=== PATIENT | female | born 2000 | race Caucasian/White ===

== ENCOUNTER 2022-03-14 20:04 | Inpatient (IN) | payer OTHER ==
[2022-03-14] MEDS ORDERED: Carboprost 250 MCG/ML AMP IM PRN (21:02)
[2022-03-14] MEDS ORDERED: Lidocaine 1% (PF) 30 ML VIAL SC PRN (21:02)
[2022-03-14] MEDS ORDERED: Acetaminophen 500 MG TAB PO PRN (21:02)
[2022-03-14] MEDS ORDERED: HYDROcodone/Acetaminophen 5/325 mg Tablet PO PRN (21:02)
[2022-03-14] MEDS ORDERED: Ondansetron PF 4 MG/2 ML Vial IVP PRN (21:02)
[2022-03-14] MEDS ORDERED: Methylergonovine 0.2 MG/ML VIAL IM PRN (21:02)
[2022-03-14] MEDS ORDERED: Misoprostol 200 MCG TAB PR PRN (21:02)
[2022-03-14] MEDS ORDERED: Promethazine HCl 25 MG/ML VIAL IM PRN (21:02)
[2022-03-14] MEDS ORDERED: hydrALAZINE 20 MG/ML VIAL SLOW IVP PRN (21:02)
[2022-03-14] MEDS ORDERED: Diphenoxylate HCl/Atropine Tablet PO PRN (21:02)
[2022-03-14] MEDS ORDERED: Ibuprofen 800 MG TAB PO PRN (21:02)
[2022-03-14] MEDS ORDERED: Misoprostol 100 MCG TAB VAG SCH (21:15)
[2022-03-14] MEDS ORDERED: NS w/ Oxytocin 30 units 500 ML IV SCH ×2 (21:15)
[2022-03-14] MEDS ORDERED: Lactated Ringer's 1,000 ML IV SCH (21:15)
[2022-03-14 22:11] VITALS: BMI 31.8
[2022-03-15 02:02] LABS: Hemoglobin 10.5 g/dL (12.0-15.5); Mean Corpuscular HGB CONC 33.5 g/dL (32.0-36.0); Mean Corpuscular Volume 89.4 fl (81.6-98.3); Mean Platelet Volume 9.4 fl (7.4-10.4); Platelet Count 624 10x3/uL (150-450); RBC Distribution Width 13.8 % (11.5-14.5); White Blood Cell (WBC) Count 19.7 10x3/uL (3.5-10.5)
[2022-03-15 02:35] LABS: Syphilis Antibody Nonreactive (Nonreactive); Syphilis Antibody Index 0.02 S/CO (<1.00 Non-Reactive)
[2022-03-15 02:36] LABS: HBSAg Index 0.19 S/CO (0-0.99); Hep B Surf Ag Non-Reactive S/CO (NonReactive)
[2022-03-15 04:27] LABS: SARS-CoV-2 NAA Rapid Test Not Detected (NotDetected)
[2022-03-15 04:28] LABS: Amphetamine Not Detected (NotDetected); Barbiturates Screen Not Detected (NotDetected); Benzodiazepine Screen Not Detected (NotDetected); Cocaine Metabolite Screen Not Detected (NotDetected); Methadone Not Detected (NotDetected); Methamphetamine Not Detected (NotDetected); Opiate Screen Not Detected (NotDetected); Oxycodone Screen Not Detected (NotDetected); Phencyclidine (PCP) Not Detected (NotDetected); THC/Cannabinoid Screen Not Detected (NotDetected); Tricyclic Screen Not Detected (NotDetected)
[2022-03-15] MEDS: Butorphanol Tartrate 1 MG/ML VIAL SLOW IVP PRN ×2 (09:34→12:13)
[2022-03-15] MEDS ORDERED: Fentanyl 2 mcg/Bup 0.1% Cadd 100 ML ONE ×2 (12:46→18:49)
[2022-03-15 20:05] LABS: RapidComm Collect By CBN
[2022-03-15 20:06] LABS: RapidComm Collect By CBN; pH (Cord, venous) 7.232 (7.250-7.350)
[2022-03-15] MEDS ORDERED: cloNIDine 0.1 MG TAB PO PRN (23:02)
[2022-03-15] MEDS ORDERED: Boostrix 0.5 ML (Tdap) VIAL (>/=7 yrs of age) IM ONE (23:02)
[2022-03-15] MEDS ORDERED: Bisacodyl 10 MG SUPP PR PRN (23:02)
[2022-03-15] MEDS ORDERED: Milk Of Magnesia 30 ML UDCUP PO PRN (23:02)
[2022-03-15] MEDS ORDERED: Promethazine HCl 25 MG/ML VIAL IM PRN (23:02)
[2022-03-15] MEDS ORDERED: Ondansetron PF 4 MG/2 ML Vial IVP PRN (23:02)
[2022-03-15] MEDS ORDERED: hydrALAZINE 20 MG/ML VIAL SLOW IVP PRN (23:02)
[2022-03-15] MEDS ORDERED: diphenhydrAMINE 25 MG CAP PO PRN (23:02)
[2022-03-15] MEDS ORDERED: HYDROcodone/Acetaminophen 5/325 mg Tablet PO PRN ×2 (23:02)
[2022-03-15] MEDS ORDERED: Lanolin Ointment 7 GM TUBE TOP PRN (23:02)
[2022-03-15] MEDS ORDERED: Benzocaine-Menthol 82.5 ML CAN TOP PRN (23:02)
[2022-03-15] MEDS ORDERED: Ibuprofen 800 MG TAB PO SCH (23:15)
[2022-03-15] MEDS ORDERED: Docusate 100 MG CAP PO SCH (23:15)
[2022-03-16] MEDS ORDERED: Ibuprofen 800 MG TAB PO SCH (06:00)
[2022-03-16] MEDS: Ferrous Sulfate 325 MG TAB PO SCH ×2 (08:06→16:53)
[2022-03-16] MEDS: Ibuprofen 800 MG TAB PO SCH ×3 (08:06→23:36)
[2022-03-16] MEDS: Docusate 100 MG CAP PO SCH ×2 (08:06→21:10)
[2022-03-16] MEDS: Prenatal Vitamin 1 TAB PO SCH (08:06)
[2022-03-17] MEDS: Prenatal Vitamin 1 TAB PO SCH (07:57)
[2022-03-17] MEDS: Ibuprofen 800 MG TAB PO SCH (07:57)
[2022-03-17] MEDS: Ferrous Sulfate 325 MG TAB PO SCH (07:57)
[2022-03-17] MEDS: Docusate 100 MG CAP PO SCH (07:57)
[2022-03-17 08:02] VITALS: BP 129/80; TEMP 97.9
== END 2022-03-17 10:30 | disposition home or self-care (01) | DRG 807 ==
LOC: CSHLD 20:04 → CSHPP 03-15 22:20
PROVIDERS: ADMIT Family Medicine; ATTEND Family Medicine
PROC: 10907ZC Drainage of Amniotic Fluid, Therapeutic from Products of Conception, Via Natural or Artificial Opening (ICD-10-PCS; 2022-03-14)
PROC: 3E0P7VZ Introduction of Hormone into Female Reproductive, Via Natural or Artificial Opening (ICD-10-PCS; 2022-03-14)
PROC: 10E0XZZ Delivery of Products of Conception, External Approach (ICD-10-PCS; principal; 2022-03-15)
PROC: 0W8NXZZ Division of Female Perineum, External Approach (ICD-10-PCS; 2022-03-15)
DX: O99.344 Other mental disorders complicating childbirth (principal); Z37.0 Single live birth; Z20.822 Contact with and (suspected) exposure to COVID-19; Z3A.40 40 weeks gestation of pregnancy; F32.A Depression, unspecified; O76 Abnormality in fetal heart rate and rhythm complicating labor and delivery
CPT/HCPCS: 80306; 82805; 85027; 86780; 86850; 86900; 86901; 87340; J0595; J2405; U0002